=== PATIENT | female | born 1970 | race Caucasian/White ===

== ENCOUNTER → 2018-03-15 10:48 | Outpatient (BNVA) | payer MEDICARE, MEDICAID, SELFPAY | PROVIDERS: PCP Nurse Practitioner Family; Visit Provider Nurse Practitioner Adult Health | DX: G43.009 Migraine without aura, not intractable, without status migrainosus (principal); G43.109 Migraine with aura, not intractable, without status migrainosus | CPT/HCPCS: 99213 ==

== ENCOUNTER → 2018-05-13 12:42 | Outpatient (BNVA) | payer MEDICARE, MEDICAID, SELFPAY | PROVIDERS: PCP Nurse Practitioner Family; Visit Provider Nurse Practitioner Adult Health | DX: G43.009 Migraine without aura, not intractable, without status migrainosus (principal); G43.109 Migraine with aura, not intractable, without status migrainosus; G89.29 Other chronic pain | CPT/HCPCS: 99213 ==

== ENCOUNTER → 2018-08-05 13:54 | Outpatient (BNVA) | payer MEDICARE, SELFPAY | PROVIDERS: PCP Nurse Practitioner Family; Visit Provider Nurse Practitioner Adult Health | DX: G43.009 Migraine without aura, not intractable, without status migrainosus (principal); G43.109 Migraine with aura, not intractable, without status migrainosus; R20.2 Paresthesia of skin | CPT/HCPCS: 99213 ==

== ENCOUNTER → 2018-09-13 14:06 | Outpatient (BNVA) | payer MEDICARE, SELFPAY | PROVIDERS: PCP Nurse Practitioner Family; Visit Provider Nurse Practitioner Adult Health | DX: R20.2 Paresthesia of skin (principal); G43.009 Migraine without aura, not intractable, without status migrainosus; G43.109 Migraine with aura, not intractable, without status migrainosus | CPT/HCPCS: 95909; 99214 ==

== ENCOUNTER → 2018-11-29 13:53 | Outpatient (BNVA) | payer MEDICARE, SELFPAY | PROVIDERS: PCP Nurse Practitioner Family; Referring Provider Nurse Practitioner Family; Visit Provider Nurse Practitioner Adult Health | DX: G43.009 Migraine without aura, not intractable, without status migrainosus (principal); R20.2 Paresthesia of skin | CPT/HCPCS: 99213 ==

== ENCOUNTER → 2019-04-25 13:03 | Outpatient (BNVA) | payer MEDICARE, SELFPAY | PROVIDERS: PCP Nurse Practitioner Family; Referring Provider Nurse Practitioner Family; Visit Provider Nurse Practitioner Adult Health | DX: G43.009 Migraine without aura, not intractable, without status migrainosus (principal); G43.109 Migraine with aura, not intractable, without status migrainosus | CPT/HCPCS: 99213 ==

== ENCOUNTER → 2019-06-28 12:22 | Outpatient (BNVA) | payer MEDICARE, SELFPAY | PROVIDERS: PCP Nurse Practitioner Family; Referring Provider Nurse Practitioner Family; Visit Provider Nurse Practitioner Adult Health | DX: G43.109 Migraine with aura, not intractable, without status migrainosus (principal); G43.009 Migraine without aura, not intractable, without status migrainosus | CPT/HCPCS: 99213; 99441 ==

== ENCOUNTER → 2019-09-27 13:05 | Outpatient (BNVA) | payer MEDICARE, SELFPAY | PROVIDERS: PCP Nurse Practitioner Family; Referring Provider Nurse Practitioner Family; Visit Provider Nurse Practitioner Adult Health | DX: G43.109 Migraine with aura, not intractable, without status migrainosus (principal); G43.009 Migraine without aura, not intractable, without status migrainosus | CPT/HCPCS: 99213 ==

== ENCOUNTER → 2019-12-27 11:24 | Outpatient (BNVA) | payer MEDICARE, SELFPAY | PROVIDERS: PCP Nurse Practitioner Family; Referring Provider Nurse Practitioner Family; Visit Provider Nurse Practitioner Adult Health | DX: G43.109 Migraine with aura, not intractable, without status migrainosus (principal); G43.009 Migraine without aura, not intractable, without status migrainosus | CPT/HCPCS: 99213; 99442 ==

== ENCOUNTER → 2020-08-13 13:32 | Outpatient (BNVA) | payer OTHER, SELFPAY | PROVIDERS: PCP Nurse Practitioner Family; Referring Provider Nurse Practitioner Family; Visit Provider Nurse Practitioner Adult Health | DX: G43.109 Migraine with aura, not intractable, without status migrainosus (principal); G43.009 Migraine without aura, not intractable, without status migrainosus; G89.29 Other chronic pain; Z79.899 Other long term (current) drug therapy | CPT/HCPCS: 99213; 99215 ==

== ENCOUNTER → 2020-09-26 13:53 | Outpatient (BNVA) | payer OTHER, SELFPAY | PROVIDERS: PCP Nurse Practitioner Family; Referring Provider Nurse Practitioner Family; Visit Provider Nurse Practitioner Adult Health | DX: G43.109 Migraine with aura, not intractable, without status migrainosus (principal); G43.009 Migraine without aura, not intractable, without status migrainosus | CPT/HCPCS: 99213 ==

== ENCOUNTER → 2021-02-27 10:30 | Outpatient (BNVA) | payer MEDICARE, SELFPAY | PROVIDERS: PCP Nurse Practitioner Family; Referring Provider Nurse Practitioner Family; Visit Provider Nurse Practitioner Adult Health | DX: G43.109 Migraine with aura, not intractable, without status migrainosus (principal); G43.009 Migraine without aura, not intractable, without status migrainosus | CPT/HCPCS: 99212 ==

== ENCOUNTER → 2021-08-28 12:21 | Outpatient (BNVA) | payer MEDICARE, SELFPAY | PROVIDERS: PCP Nurse Practitioner Family; Referring Provider Nurse Practitioner Family; Visit Provider Nurse Practitioner Adult Health | DX: G43.109 Migraine with aura, not intractable, without status migrainosus (principal); G43.009 Migraine without aura, not intractable, without status migrainosus | CPT/HCPCS: 99213 ==

== ENCOUNTER → 2022-09-17 13:05 | Outpatient (BNVA) | payer OTHER, SELFPAY | PROVIDERS: PCP Nurse Practitioner Family; Referring Provider Nurse Practitioner Family; Visit Provider Nurse Practitioner Adult Health | DX: G43.009 Migraine without aura, not intractable, without status migrainosus (principal); G43.109 Migraine with aura, not intractable, without status migrainosus; G89.29 Other chronic pain; F39 Unspecified mood [affective] disorder | CPT/HCPCS: 99213 ==

== ENCOUNTER → 2023-10-14 13:33 | Outpatient (BNVA) | payer OTHER, SELFPAY | PROVIDERS: PCP Nurse Practitioner Family; Referring Provider Nurse Practitioner Family; Visit Provider Nurse Practitioner Adult Health | DX: G43.009 Migraine without aura, not intractable, without status migrainosus (principal); G43.109 Migraine with aura, not intractable, without status migrainosus | CPT/HCPCS: 99213 ==